=== PATIENT | female | born 1985 | race Caucasian/White ===

== ENCOUNTER 2018-09-24 08:59 | Emergency (ER) | payer OTHER ==
--- NOTE | 2018-09-24 10:30 | RADIOLOGY REPORT (SQ) ---
EXAM DESCRIPTION: CT HEAD WITHOUT COMPLETED DATE/TIME: 09/24/2018 10:18 am REASON FOR STUDY: headache COMPARISON: None. TECHNIQUE: Axial images acquired through the brain without intravenous contrast. Images reviewed wi th bone, brain and subdural windows. Additional sagittal and coronal reconstructions were generated. Images stored on PACS. All CT scanners at this facility use dose modulation, iterative reconstruction, and/or weight based d osing when appropriate to reduce radiation dose to as low as reasonably achievable (ALARA). [facility]: Dose Right [facility]: CareDose [facility]: Dose Right [facility]: Teradose 4D [facility]: Kiptronic RADIATION DOSE: CT Rad equipment meets quality standard of care and radiation dose reduction techniq ues were employed. CTDIvol: 53.2 mGy. DLP: 1070 mGy-cm. mGy. LIMITATIONS: None. FINDINGS: VENTRICLES: Normal size and contour. CEREBRUM: No masses. No hemorrhage. No midline shift. No evidence for acute infarction. Normal gra y/white matter differentiation. No areas of low density in the white matter. CEREBELLUM: No masses. No hemorrhage. No alteration of density. No evidence for acute infarction. EXTRAAXIAL SPACES: No fluid collections. No masses. ORBITS AND GLOBE: No intra- or extraconal masses. Normal contour of globe without masses. CALVARIUM: No fracture. PARANASAL SINUSES: No fluid or mucosal thickening. SOFT TISSUES: No mass or hematoma. OTHER: No other significant finding. IMPRESSION: NORMAL BRAIN CT WITHOUT CONTRAST. EVIDENCE OF ACUTE STROKE: NO. COMMENT: Quality ID # [id number]: Final reports with documentation of one or more dose reduction techniques (e.g., Automated exposure control, adjustment of the mA and/or kV according to patient size, use of iterative reconstruction technique) TECHNICAL DOCUMENTATION: JOB ID: [id number] [employer] All Rights Reserved Reading location - IP/workstation name: [email or web address]
[2018-09-24] MEDS ORDERED: DIPHENHYDRAMINE HCL 50 MG/ML VIAL ONE (10:34)
[2018-09-24] MEDS ORDERED: NORMAL SALINE 1000 ML 1,000 ML IV ONE (10:37)
[2018-09-24] MEDS ORDERED: KETOROLAC TROMETHAMINE INJ/PF 30 MG/1 ML SDV IV ONE (10:37)
[2018-09-24] MEDS ORDERED: METOCLOPRAMIDE HCL INJ/PF 10 MG/2 ML SDV IV ONE (10:37)
[2018-09-24] MEDS ORDERED: DIPHENHYDRAMINE HCL 50 MG/ML VIAL IV ONE (10:37)
[2018-09-24 12:04] VITALS: BP 118/79
--- NOTE | 2018-09-24 12:05 | ER Document Report ---
ED Headache - General Chief Complaint: Headache Stated Complaint: HEADACHE Time Seen by Provider: 09/24/18 09:28 Notes: Patient is a 32-year-old female history of MS and migraines presents to the emergency department for 2 weeks of generalized left-sided headache. Patient states upon onset it was "the worst headache of my life." States she does have a history of migraines but states "my migraines do not typically feel like this." Patient states she also has a history of MS typical MS flares to involve bilateral eyes. States she has been on outpatient IV steroids in the past for MS flares. States she is new to the area and does have a appointment with her primary care provider on Saturday. States that is when she is going to get referral to neurology. Patient states typical migraines give her photophobia and nausea. She is denying photophobia or nausea at this time. States she has generalized left eye pain and intermittent left face numbness. States this is typical of a MS flare. Patient states typically oral steroids "do nothing." TRAVEL OUTSIDE OF THE [place] IN LAST 30 DAYS: No - Related Data Allergies/Adverse Reactions: Penicillins Allergy (Verified 09/24/18 09:00) shellfish derived Allergy (Verified 09/24/18 09:00) Past Medical History - General Information source: Patient - Social History Smoking Status: Never Smoker Frequency of alcohol use: Social Drug Abuse: None Family History: Reviewed & Not Pertinent Patient has suicidal ideation: No Patient has homicidal ideation: No Neurological Medical History: Reports: Hx Migraine Renal/ Medical History: Denies: Hx Peritoneal Dialysis Past Surgical History: Reports: Hx Appendectomy, Hx Cholecystectomy, Hx Gynecologic Surgery - d/cx 2/ablation, Hx Orthopedic Surgery - l knee, Hx Tonsillectomy Review of Systems - Review of Systems Constitutional: See HPI EENT: See HPI Cardiovascular: No symptoms reported Respiratory: No symptoms reported Gastrointestinal: No symptoms reported Genitourinary: No symptoms reported Female Genitourinary: No symptoms reported Musculoskeletal: No symptoms reported Skin: No symptoms reported Hematologic/Lymphatic: No symptoms reported Neurological/Psychological: See HPI Physical Exam - Vital signs Vitals: Temp Pulse Resp BP Pulse Ox 98.0 F 77 16 133/81 H 98 09/24/18 09:07 09/24/18 09:07 09/24/18 09:07 09/24/18 09:07 09/24/18 09:07 - Notes Notes: GENERAL: Alert, interacts well. No acute distress. HEAD: Normocephalic, atraumatic. Symmetrical smile EYES: Pupils equal, round, and reactive to light. Extraocular movements intact And painless. ENT: Oral mucosa moist, tongue midline. Nares patent, no nasal septal hematoma, TM's intact NECK: Full range of motion. Supple. Trachea midline. LUNGS: Clear to auscultation bilaterally, no wheezes, rales, or rhonchi. No respiratory distress. HEART: Regular rate and rhythm. No murmur ABDOMEN: Soft, non-tender. Non-distended. Bowel sounds present in all 4 quadrants. EXTREMITIES: Moves all 4 extremities spontaneously. No edema, normal radial and dorsalis pedis pulses bilaterally. No cyanosis. 5 out of 5 strength all 4 extremities. BACK: no cervical, thoracic, lumbar midline tenderness. No saddle anesthesia, normal distal neurovascular exam. NEUROLOGICAL: Alert and oriented x3. Normal speech. cranial nerves II through XII grossly intact PSYCH: Normal affect, normal mood. SKIN: Warm, dry, normal turgor. No rashes or lesions noted. - HEENT Visual acuity- Right eye: 20/30 Visual acuity- Left eye: 20/30 Visual acuity- Both eyes: 20/25 Corrective lenses worn: No Course - Re-evaluation Re-evalutation: I have discussed with patient at length possible treatment modalities should this be an MS flare. I have also discussed unfortunately his hospital does not have neurology administrative receptionist. I discussed transfer to another facility to facilitate IV steroid treatment. Patient is wishing to decline oral steroids at this time. She is also wishing to decline transfer to another facility. States "my boss made me come in, I was going to wait till I saw my doctor on Saturday." Patient is wishing for a migraine cocktail. Discussed negative CT results with patient at bedside. Patient continues to be neurologically intact, showing no deficits. Discussed close follow-up with primary care provider and neurology. Discussed close return precautions. 09/24/18 12:06 Patient states after treatments in the emergency department she does overall feel "a little bit better." - Vital Signs Vital signs: Temp Pulse Resp BP Pulse Ox 98.0 F 77 16 133/81 H 98 09/24/18 09:07 09/24/18 09:07 09/24/18 09:07 09/24/18 09:07 09/24/18 09:07 Discharge - Discharge Clinical Impression: Headache Qualifiers: Headache type: unspecified Headache chronicity pattern: unspecified pattern Intractability: not intractable Qualified Code(s): R51 - Headache Condition: Stable Disposition: HOME, SELF-CARE Instructions: Headache ([facility]) Additional Instructions: As we discussed you have been seen and treated in the emergency department for generalized headache. Your CT shows no signs of abnormalities. Unfortunately we do not have access to neurology. It is my suggestion that you continue to follow-up with your primary care provider or the neurologist for which I have referred you to. Is also my suggestion that you immediately return to the emergency room should your symptoms get worse you have any other concerns. Forms: Return to Work Referrals: FIOAN LOPEZ MD [EMERITUS] - Follow up as needed
== END 2018-09-24 12:20 | disposition home or self-care (01) ==
LOC: ER 08:59
DX: R51 Headache (principal); G35 Multiple sclerosis; Z88.0 Allergy status to penicillin; Z91.013 Allergy to seafood; Z90.49 Acquired absence of other specified parts of digestive tract
CPT/HCPCS: 99284; 96361; 96374; 96375; 70450; J1885; J2765; J7030

== ENCOUNTER → 2019-08-18 | Outpatient (CLI) | payer OTHER ==
--- NOTE | 2019-08-18 13:58 | RADIOLOGY REPORT (SQ) ---
EXAM DESCRIPTION: U/S NON-OB PELVIS TV W/O DOP IMAGES COMPLETED DATE/TIME: 08/18/2019 1:44 pm REASON FOR STUDY: R10.32 LEFT LOWER QUADRANT PAIN R10.32 LEFT LOWER QUADRANT PAIN COMPARISON: None. TECHNIQUE: Dynamic and static grayscale images acquired of the pelvis via transvaginal approach and recorded on PACS. Additional selected color Doppler and spectral images recorded. LIMITATIONS: None. FINDINGS: UTERUS: Contour normal. Slightly heterogenous. No mass. ENDOMETRIAL STRIPE: Several small hyperechoic regions adjacent to the endometrium. May be related to prior ablation treatment. CERVIX: No nabothian cysts. RIGHT OVARY AND DOPPLER: Normal size. No worrisome masses. Normal arterial vascular flow without evid ence for torsion. LEFT OVARY AND DOPPLER: Normal size. No worrisome masses. Normal arterial vascular flow without evide nce for torsion. FREE FLUID: None noted. OTHER: No other significant finding. MEASUREMENTS: UTERUS: 5.0 x 5.2 x 8.0 cm. ENDOMETRIAL STRIPE: 4 mm. RIGHT OVARY: 1.5 x 2.2 x 3.0 cm. LEFT OVARY: 1.9 x 2.7 x 2.8 cm. IMPRESSION: SEVERAL SMALL HYPERECHOIC REGIONS ADJACENT TO THE ENDOMETRIUM. MAY BE RELATED TO PREVIO US ABLATION. OTHERWISE UNREMARKABLE STUDY. TECHNICAL DOCUMENTATION: JOB ID: [id number] [employer]- All Rights Reserved Rev-08/02 Reading location - IP/workstation name: [email or web address]
== END ==
LOC: RAD 13:17
PROVIDERS: ATTEND Nurse Practitioner Family
DX: R10.32 Left lower quadrant pain (principal)
CPT/HCPCS: 76830